=== PATIENT | female | born 1970 | race Caucasian/White ===

== ENCOUNTER 2017-03-18 06:02 | Emergency (ER) | payer BC ==
[~2017-03-18] VITALS: Ht 167.6 cm; Wt 99.8 kg
--- NOTE | ~2017-03-18 | EKG ---
PATIENT: ADELA SCOTT UNIT #: [id number] Ventricular Rate: 74 BPM Atrial Rate: 74 BPM P-R Interval: 160 ms QRS Duration: 100 ms Q-T Interval: 402 ms QTC Calculation(Bezet): 446 ms P [place]: 74 degrees Calculated R [place]: 59 degrees Calculated T [place]: 64 degrees Diagnosis Line: Normal sinus rhythm Diagnosis Line: Septal infarct , age undetermined Diagnosis Line: Abnormal ECG Diagnosis Line: No previous ECGs available Diagnosis Line: Confirmed by MARYANNE KHANNA MD ([id number]) on Diagnosis Line: 03/18/2017 12:32:56 PM INTERPRETING MD: CLEMENCIA PAREDES
--- NOTE | ~2017-03-18 | CR72 ---
[facility] A Service of [facility] RADIOLOGY TEXT RESULTS PATIENT: ADELA SCOTT LOCATION: [facility] : 66 UNIT #: [id number] AGE: [address]: Asutin Herman MD SEX: F ORDER DR: [id number] [facility] [address] [place], [place] [address] [id number] E MR#: [id number] Acc #: [id number] NAME: ADELA SCOTT : 1970 SEX: F STUDY DATE/TIME: 03/18/2017 7:13 UNIT: [facility] ROOM: STUDY DESCRIPTION: CR Chest Single View Portable Attending Physician: Austin Herman M.D. Ordering Physician: Austin Herman M.D. Primary Care Physician: Michelle Eastman M.D. MEDICAL IMAGING REPORT This report is preliminary unless electronic signature is present EXAM Portable chest HISTORY Shortness of air, chest pain onset this morning. History of CHF. COMPARISON 01/17/2016. FINDINGS A single AP portable view of the chest shows both lungs to be clear. The heart is normal in size. The mediastinal contour is normal. No significant bone abnormalities are seen. IMPRESSION Normal portable chest. Dictated by... Niki Melendrez M.D. THIS IS AN ELECTRONICALLY VERIFIED REPORT Niki Melendrez M.D. at 03/19/2017 10:15 AM GABI/anibal TD: 03/18/2017 13:02 JOB #: [id number] MEDICAL IMAGING REPORT Page 1 of 1 COPY
[~2017-03-18 06:02] MED LIST: ASPIRIN PO; ASPIRIN81 M1 PO; ASPIRIN81 M2 PO; BENADRYL PO; CLARITIN10 M2 PO; COREG3.125 MG PO; CYMBALTA; DIOVAN; DOLOBID500 MG PO; FAMOTIDINE20 M1 PO; FISH OIL 1,0001 CA2 PO; HCTZ PO; IRON1 TA1 PO; MELATONIN3 M4 PO; PERCOCET5/325 PO; POTASSIUM PO; PRILOSEC20 MG PO; SERTRALINE HCL50 MG PO; SKELAXIN PO; SUPER B COMPLEX1 CAP PO; ZOLOFT PO; ZOLOFT100 MG PO
[2017-03-18 07:08] LABS: BASOPHIL# 0.1 X10e3 (0-0.3); BASOPHIL% 0.7 % (0-2.5); EOSINOPHIL# 0.2 X10e3 (0-0.7); EOSINOPHIL% 3.1 % (0.0-7.0); HEMATOCRIT 40.5 % (35.0-45.0); HEMOGLOBIN 14.1 gm/dL (12.0-16.0); LYMPHOCYTE# 2.3 X10e3 (1.0-3.5); MEAN CELL VOLUME 87.6 FL (83-96); MEAN CORPUSCULAR HEMOGLOBIN 30.4 PG (28-34); MEAN CORPUSCULAR HGB CONC 34.7 g/dL (30-36); MEAN PLATELET VOLUME 8.1 FL (6.5-11.5); MONOCYTE# 0.4 X10e3 (0-1.0); NEUTROPHIL# 4.8 X10e3 (1.5-7.1); NEUTROPHIL% 61.2 % (40-75); PLATELET COUNT 244 X10e3 (140-420); RED BLOOD COUNT 4.63 X10e (3.90-5.30); RED CELL DISTRIBUTION WIDTH 12.6 % (11.0-15.5); WHITE BLOOD COUNT 7.8 X10e3 (4.0-10.5)
[2017-03-18 07:09] LABS: DIFF IND NO
[2017-03-18 07:17] LABS: POC - CKMB <1.0 ng/mL (0.0-7.9); POC - TROPONIN <0.05 ng/mL (<=0.05)
[2017-03-18 07:23] LABS: INR 0.9; PARTIAL THROMBOPLASTIN TIME 27.2 SECONDS (23.5-31.3); PROTHROMBIN TIME (PATIENT) 9.9 SECONDS (10.0-11.7)
[2017-03-18 07:34] LABS: ALBUMIN SERUM 4.1 g/dL (3.5-5.0); BILIRUBIN, DIRECT 0.1 mg/dL (0.0-0.2); BILIRUBIN,INDIRECT 0.5 mg/dL (0.0-0.9); BILIRUBIN,TOTAL 0.6 mg/dL (0.2-2.0); BUN/CREATININE RATIO 15.71; CALCIUM SERUM 9.2 mg/dL (8.4-10.2); CREATININE SERUM 0.7 mg/dL (0.6-1.4); GLOM FILT RATE Estimated 101.7 mL/min (>60); POTASSIUM 3.4 mmol/L (3.5-5.1); PROTEIN TOTAL SERUM 7.3 g/dL (6.0-8.3)
[2017-03-18 07:50] LABS: POC - CKMB <1.0 ng/mL (0.0-7.9); POC - TROPONIN <0.05 ng/mL (<=0.05)
[2017-04-10] MEDS ORDERED: B-12500 MC1 PO (11:58)
[2017-04-10] MEDS ORDERED: LOW DOSE ASPIRI81 M2 PO (11:58)
[2017-04-10] MEDS ORDERED: CARVEDILOL3.125 MG PO (12:00)
[2017-04-10] MEDS ORDERED: LEVOTHYROXINE25 MCG PO (12:01)
[2017-04-10] MEDS ORDERED: HYDROCHLOROTHIA25 MG PO (12:01)
[2017-04-10] MEDS ORDERED: OMEGA 3 1,0001 EACH PO (12:02)
[2017-04-10] MEDS ORDERED: POTASSIUM CHLO10 MEQ PO (12:03)
[2017-04-10] MEDS ORDERED: ROSUVASTATIN CAL5 MG PO (12:03)
[2017-04-10] MEDS ORDERED: SERTRALINE HCL100 MG PO (12:04)
== END 2017-03-18 08:42 | disposition home or self-care (01) ==
LOC: CED 06:02
PROVIDERS: Emergency Medicine
DX: R07.9 Chest pain, unspecified (principal); I11.0 Hypertensive heart disease with heart failure; I50.9 Heart failure, unspecified; Z87.891 Personal history of nicotine dependence; Z88.2 Allergy status to sulfonamides
CPT/HCPCS: 36415; 71010; 80048; 80076; 82553; 83880; 84484; 85025; 85379; 85610; 85730; 93005; 99285

== ENCOUNTER → 2017-04-10 | Outpatient (CLI) | payer BC ==
[~2017-04-10] VITALS: Ht 168.9 cm; Wt 103.1 kg
[~2017-04-10] MED LIST changes: +B-12500 MC1 PO; +CARVEDILOL3.125 MG PO; +HYDROCHLOROTHIA25 MG PO; +LEVOTHYROXINE25 MCG PO; +LOW DOSE ASPIRI81 M2 PO; +OMEGA 3 1,0001 EACH PO; +POTASSIUM CHLO10 MEQ PO; +ROSUVASTATIN CAL5 MG PO; +SERTRALINE HCL100 MG PO
--- NOTE | ~2017-04-10 | EKG ---
PATIENT: ADELA SCOTT UNIT #: [id number] Ventricular Rate: 69 BPM Atrial Rate: 69 BPM P-R Interval: 168 ms QRS Duration: 102 ms Q-T Interval: 408 ms QTC Calculation(Bezet): 437 ms P [place]: 68 degrees Calculated R [place]: 56 degrees Calculated T [place]: 59 degrees Diagnosis Line: Normal sinus rhythm Diagnosis Line: Septal infarct (cited on or before 18-MAR-2017) Diagnosis Line: Borderline ECG Diagnosis Line: When compared with ECG of 18-MAR-2017 06:07, Diagnosis Line: No significant change was found Diagnosis Line: Confirmed by AVEL ADAMSON MD ([id number]) on 04/11/2017 Diagnosis Line: 10:20:27 PM INTERPRETING MD: SNOW PAREDES
[2017-04-10 11:55] LABS: HEMATOCRIT 39.1 % (35.0-45.0); HEMOGLOBIN 13.6 gm/dL (12.0-16.0); MEAN CORPUSCULAR HEMOGLOBIN 30.7 PG (28-34); MEAN CORPUSCULAR HGB CONC 34.8 g/dL (30-36); MEAN PLATELET VOLUME 7.9 FL (6.5-11.5); RED BLOOD COUNT 4.44 X10e (3.90-5.30); RED CELL DISTRIBUTION WIDTH 12.5 % (11.0-15.5); WHITE BLOOD COUNT 7.2 X10e3 (4.0-10.5)
[2017-04-10 12:09] LABS: INR 0.9; PARTIAL THROMBOPLASTIN TIME 27.3 SECONDS (23.5-31.3); PROTHROMBIN TIME (PATIENT) 9.9 SECONDS (10.0-11.7)
[2017-04-10 12:20] LABS: CREATININE SERUM 0.7 mg/dL (0.6-1.4); GLOM FILT RATE Estimated 101.7 mL/min (>60); POTASSIUM 3.6 mmol/L (3.5-5.1)
== END | disposition home or self-care (01) ==
LOC: CCVL 11:08
PROVIDERS: Internal Medicine Cardiovascular Disease
DX: R07.9 Chest pain, unspecified (principal); I10 Essential (primary) hypertension; F41.9 Anxiety disorder, unspecified; Z88.2 Allergy status to sulfonamides
CPT/HCPCS: 36415; 80048; 84703; 85027; 85610; 85730; 93005; 99152; 99153; C1769; C1887; C1894; J1644; J2250; J3010